=== PATIENT | female | born 2000 | race Caucasian/White ===

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

== ENCOUNTER → 2020-04-23 18:00 | Outpatient (CLI) | payer MEDICAID, SELFPAY ==
[2020-04-23 19:33] LABS: Basophils # 0.1 K/mm3 (0-0.2); Basophils % 0.6 % (0.1-2.0); Eosinophils # 0.9 K/mm3 (0.0-0.4); Eosinophils % 9.6 % (0.1-12.0); Hemoglobin 13.7 g/dL (12.2-16.2); Lymphocytes # 2.1 K/mm3 (0.7-4.5); Lymphocytes % 22.4 % (10-50); Mean Corpuscular HGB Conc 35.1 g/dL (31.8-35.4); Mean Corpuscular Volume 88.3 fl (81-99); Mean Platelet Volume 9.9 fl (7.4-10.4); Monocytes # 0.3 K/mm3 (0.1-1.0); Neutrophils # 5.9 K/mm3 (1.8-7.8); Neutrophils % 64.4 % (37.0-80.0); Platelet Count 298 K/mm3 (142-424); Red Blood Count 4.42 M/mm3 (4.20-5.40); Red Cell Distribution Width 12.9 % (11.5-17.5); White Blood Count 9.2 K/mm3 (4.5-13.0)
[2020-04-23 20:25] LABS: Alanine Aminotransferase 11 U/L (12-78); Albumin Level 4.2 g/dl (3.5-5.0); Albumin/Globulin Ratio 1.6 (1.1-1.8); Alkaline Phosphatase 82 U/L (38-126); Anion Gap 13.9 mEq/L (5-15); Aspartate Amino Transferase 18 U/L (14-36); Bilirubin,Total 0.3 mg/dl (0.2-1.3); Blood Urea Nitrogen 4 mg/dl (7-17); Calcium 9.4 mg/dl (8.4-10.2); Carbon Dioxide 25 mmol/L (22.0-30.0); Chloride 104 mmol/L (98-107); Chol/HDL Ratio 2.4 (1-3.5); Cholesterol 208 mg/dl (140-200); Estimated Glomerular Filt Rate 159 ml/min (>60); GFR (African American) 192 ML/MIN (>60); Globulin 2.7 g/dL (1.3-3.2); Glucose 93 mg/dl (74-100); HDL Cholesterol 87 mg/dl (40-60); Potassium 3.9 mmoL/L (3.5-5.1); Sodium 139 mmol/L (136-145); Total Protein,Serum 6.9 g/dl (6.3-8.2); Triglycerides 94 mg/dl (30-150); VLDL Cholesterol 19 mg/dL (0-40)
[2020-04-23 20:38] LABS: Direct LDL Cholesterol 115.65 mg/dL (100-129)
[2020-04-23 20:43] LABS: T4 (Thyroxine) 10.9 ug/dl (5.53-11.0)
[2020-04-23 20:52] LABS: 25-OH Vitamin D, Total 17.4 ng/mL (30-100)
[2020-04-23 20:57] LABS: Thyroid Stimulating Hormone 1.41 uIU/mL (0.465-4.68)
== END ==
PROVIDERS: Visit Provider Physician Assistant
DX: F41.9 Anxiety disorder, unspecified (principal); R53.83 Other fatigue; E55.9 Vitamin D deficiency, unspecified
CPT/HCPCS: 80053; 80061; 82306; 84436; 84443; 85025

== ENCOUNTER → 2020-07-01 14:04 | Outpatient (CLI) | payer MEDICAID, SELFPAY ==
[2020-07-01 14:56] LABS: Coronavirus 19 IgG Antibody Negative (Negative); Coronavirus 19 IgM Antibody Negative (Negative)
== END ==
PROVIDERS: PCP Physician Assistant; Visit Provider Internal Medicine Gastroenterology
DX: Z01.818 Encounter for other preprocedural examination (principal); Z12.11 Encounter for screening for malignant neoplasm of colon
CPT/HCPCS: 36415; 86328

== ENCOUNTER 2020-07-02 13:08 | Day surgery (SDC) | payer MEDICAID, SELFPAY ==
[2020-06-28 15:00] VITALS: BMI 23.6
[2020-07-02 13:41] VITALS: BP 101/59; PULSE 61; RESP 18; TEMP 36.4; O2SAT 100
[2020-07-02 13:42] LABS: Urine Pregnancy, HCG Qual. Negative (Negative)
[2020-07-02 14:19] VITALS: O2SAT 97
--- NOTE | 2020-07-02 14:42 | HMH.PROC ---
[facility] Procedure Note Procedure Note:: Colonoscopy Procedure Report: Colonoscopy with monopolar ablation/coagulation of internal hemorrhoids Endoscopist: Ankush Garcia II, MD Referring physician: Mellisa Jeong PA-C Date of Procedure: July 02, 2020 Equipment: Olympus 180 variable stiffness pediatric colonoscope Sedation: MAC sedation Indication: Ms. Johnson is a 20-year-old female with frequent bright red rectal bleeding. She does get some occasional rectal pain. She also has irregular bowel function with constipation and sometimes she will alternate with diarrhea. She has lost approximately 30 pounds unintentionally in the last 5 months. She reports obstipation/incomplete defecation with excessive wiping. She reports no family history of colitis, Crohn's disease or colon cancer. Her recent lab work from April 23, 2020 did show normal hemoglobin 13.7 and hematocrit 39.0. The patient also had normal liver chemistries with ALT 11 and AST 18 and alkaline phosphatase 82. Procedure: Prior to the procedure, a history and physical exam was performed, and patient's medications and allergies were reviewed. The risks, benefits and alternatives of the sedation and procedure were discussed with the patient. All questions were answered and informed consent was obtained. The patient was brought to the procedure room. Patient identification and proposed procedure were verified by the physician and the nurse. The patient was placed in a left lateral decubitus position and the scope was passed under direct vision. Throughout the procedure, the patient's blood pressure, pulse, and oxygen saturations were monitored continuously. The colonoscopy was accomplished without difficulty. The patient tolerated the procedure well. Findings: On digital rectal examination there was normal rectal tone. There were no external hemorrhoids. The colonoscope was introduced through the anal canal to the rectum and advanced to the cecum. The ileocecal valve and appendiceal orifice were identified. The scope was advanced a short distance into the ileum which appeared grossly normal. The scope was then withdrawn into the colon. The cecum, ascending, transverse, descending, sigmoid and rectum were grossly normal. There were no mucosal abnormalities identified. Upon retroflexion within the rectum there were grade 1-2 internal hemorrhoids.these columns of hemorrhoids were ablated/coagulated with monopolar ablation. There was excellent cautery effect. The preparation was excellent throughout with [place] Preparation Score of 9. The cecal time was 10 minutes. Impression: 1. Normal colonoscopy with intubation of the terminal ileum 2. Grade 1-2 internal hemorrhoids status post monopolar ablation/coagulation Plan: I would encourage dietary measures and a fiber bowel regimen on a long-term daily maintenance basis. I will discuss the findings with the patient and family.
[2020-07-02 14:48] VITALS: BP 109/68; PULSE 64; RESP 18; TEMP 36.4; O2SAT 99
[2020-07-02 14:58] VITALS: BP 122/61; PULSE 60; RESP 18; O2SAT 98
[2020-07-02 15:08] VITALS: BP 104/59; PULSE 52; RESP 18; O2SAT 98
[2020-07-02 15:18] VITALS: BP 110/61; PULSE 59; RESP 18; O2SAT 98
== END 2020-07-02 15:18 | disposition home or self-care (01) ==
LOC: OUTP 13:09
PROVIDERS: PCP Physician Assistant; Visit Provider Internal Medicine Gastroenterology
PROC: 0DJD8ZZ Inspection of Lower Intestinal Tract, Via Natural or Artificial Opening Endoscopic (ICD-10-PCS; CPT 45378; principal; 2020-07-02 14:30)
DX: K64.0 First degree hemorrhoids (principal); R63.4 Abnormal weight loss; Z68.23 Body mass index [BMI] 23.0-23.9, adult; K62.5 Hemorrhage of anus and rectum; K59.00 Constipation, unspecified; R19.7 Diarrhea, unspecified; F41.9 Anxiety disorder, unspecified; F32.9 Major depressive disorder, single episode, unspecified; Z79.899 Other long term (current) drug therapy; Z79.3 Long term (current) use of hormonal contraceptives
CPT/HCPCS: 45378; 46930; 81025

== ENCOUNTER 2020-08-24 11:14 | Emergency (ER) | payer MEDICAID, SELFPAY ==
[2020-08-24 11:35] VITALS: BP 113/76; PULSE 73; RESP 19; TEMP 36.6; O2SAT 98; BMI 25.4
[2020-08-24 11:50] LABS: Apearance,Urine Cloudy (Clear); Bilirubin,Urine 1+ (Negative); Blood, Urine 2+ (Negative); Color,Urine Dark Yellow (Yellow); Glucose,Urine (UA) Negative (Negative); Ketones,Urine Negative (Negative); PH,Urine 7.5 (5.0-8.5); Protein,Urine 1+ (Negative); Specific Gravity, Urine 1.015 (1.005-1.030); UTC Leukocyte Esterase,Urine 1+ (Negative); UTC Nitrate,Urine Negative (Negative); UTC Pregnancy Test, Urine Negative (Negative); Urobilinogen,Urine 4 EU/dl (0.2)
--- NOTE | 2020-08-24 12:06 | HMH.EDUTC ---
[facility] [place] Clinical Impression: UTI (urinary tract infection) Qualifiers: Urinary tract infection type: site unspecified Hematuria presence: with hematuria Qualified Code(s): N39.0 - Urinary tract infection, site not specified Disposition: Home, Self-Care Condition on Discharge: Good Instructions: Urinary Tract Infection Additional Instructions: Drink plenty of fluids. Take tylenol for pain or fever. Return if you begin to have difficulty breathing. Follow up with your regular doctor. GO TO THE ER FOR ANY WORSENING SYMPTOMS Prescriptions: Ondansetron [Zofran 4mg ODT] 4 mg PO Q8HP PRN #20 tab.rapdis PRN Reason: Nausea Transmission Status: Received by [facility] Cefdinir [Omnicef 300mg Capsule] 300 mg PO BID 7 Days #14 cap Transmission Status: Received by [facility] Referrals: Mellisa Jeong PA [Primary Care Provider] - Forms: Work/School Release Time of Disposition: 12:29 Medical Decision Making - Medical Records Medical records reviewed: No: I reviewed the patient's medical records. - Roe Inquiry Pt receiving controlled substance: No Vital Signs: 08/24/20 11:35 08/24/20 12:34 Temperature 97.8 F 97.8 F Temperature Source Oral Pulse Rate 73 Pulse Rate [Right Brachial] 73 Respiratory Rate 19 19 Blood Pressure 113/76 Blood Pressure [Right Arm] 113/76 Blood Pressure Mean [Right Arm] 88 Blood Pressure Source [Right Arm] Automatic Cuff Blood Pressure Position [Right Arm] Sitting 02 Sat by Pulse Oximetry 98 Oxygen Delivery Method Room Air - Lab Data Lab results reviewed: Yes: I reviewed the patient's lab results. Lab Results 08/24/20 11:31: Urine Color Dark yellow, Urine Appearance Cloudy, Urine pH 7.5, Ur Specific [place] 1.015, Urine Protein 1+, Urine Glucose (UA) Negative, Urine Ketones Negative, Urine Blood 2+, Urine Nitrate Negative, Urine Bilirubin 1+ A, Urine Urobilinogen 4, Ur Leukocyte Esterase 1+ A, Tst Clinic Negative Orders (Tests/Meds): ORDERS Category Date Time Status Urine Culture Stat Micro 08/24/20 11:30 Received [facility] [place] HPI - General Stated complaint: stomach pain Time Seen by Provider: 08/24/20 12:06 Mode of Arrival: Ambulatory Source of Information: Spouse Limitations: No Limitations Description of Symptoms (Recalled from Triage Doc. by RN): PATIENT C/O ABDOMINAL PAIN THAT RADIATES THROUGH HER CHEST AND UPPER BACK X 3 DAYS; ALSO C/O NAUSEA, DECREASED APPETITE AND DIFFICULTY SITTING UP FOR LONG PERIODS OF TIME HEENT Symptoms (Recalled from RN notes): No Resp Symptoms (Recalled from RN notes): No Skin Symptoms (Recalled from RN notes): No MS Symptoms (Recalled from RN notes): No Functional Status (Recalled from RN notes): WNL - History of Present Illness Provider Complaint: She c/o low back pain that began 3 days ago. She has also had abdominal cramping. She thinks that she may have a uti. - Related Data Home Medications Medication Instructions Recorded Confirmed Escitalopram Oxalate See Rx Instructions .ROUTE .COMPLEX 08/24/20 08/24/20 Previous Rx's Medication Instructions Recorded Cefdinir [Omnicef 300mg Capsule] 300 mg PO BID 7 Days #14 cap 08/24/20 Ondansetron [Zofran 4mg ODT] 4 mg PO Q8HP PRN #20 tab.rapdis 08/24/20 Allergies Allergy/AdvReac Type Severity Reaction Status Date / Time No Known Allergies Allergy Verified 06/07/20 10:58 - Worker's Comp Is this a Worker's Comp case?: No [facility] [place] History - Hepatitis A Screen Drug use history?: No High risk sexual behaviors?: No History of sexually transmitted infection?: No Currently employed?: No Childcare worker?: No Do you have indoor plumbing?: Yes Do you have electricity?: Yes Attestation statement:: This patient has been screened for Hepatitis A risk factors. I have reviewed the patient's past medical history: Yes Medical History: Denies:: Cancer, Diabetes Mellitus Type 1, Diabetes Mellitus
[2020-08-24 12:34] VITALS: BP 113/76; PULSE 73; RESP 19; TEMP 36.6; O2SAT 98
== END 2020-08-24 12:36 | disposition home or self-care (01) ==
PROVIDERS: Emergency Provider Nurse Practitioner Family; PCP Physician Assistant
DX: N39.0 Urinary tract infection, site not specified (principal); F41.8 Other specified anxiety disorders; F17.290 Nicotine dependence, other tobacco product, uncomplicated
CPT/HCPCS: 81003; 81025; 87086; 99201

== ENCOUNTER 2021-06-18 12:40 | Emergency (ER) | payer MEDICAID, SELFPAY ==
[2021-06-18 13:13] VITALS: BP 113/80; PULSE 68; RESP 16; TEMP 37.1; O2SAT 96; BMI 27.4
--- NOTE | 2021-06-18 13:25 | HMH.EDUTC ---
[facility] [place] Disposition Clinical Impression: Bronchitis, Laryngitis Disposition: Home, Self-Care Condition on Discharge: Good Instructions: Acute Bronchitis, DI for Acute Bronchitis Additional Instructions: Drink plenty of fluids. Take tylenol or ibuprofen for pain or fever. Take the medications as directed. Follow up with your regular doctor. GO TO THE ER FOR ANY WORSENING SYMPTOMS Quarantine until you know the results of your covid-19 test. If it is positive, the health department should call you and give you further instructions about your length of Quarantine and other things. Notify your school or workplace of your results and follow their instructions regarding return to work/school. Her work excuse needs to count for 06/17/2021 also. Prescriptions: Amoxicillin [Amoxicillin 500mg Tab] 500 mg PO TID 10 Days #30 tab Transmission Status: Received by [facility] methylPREDNISolone [Medrol] 4 mg PO DIRECTED 6 Days #21 packet Transmission Status: Received by [facility] Ondansetron [Zofran 4mg ODT] 4 mg PO DAILYP PRN #12 tab PRN Reason: Nausea Transmission Status: Received by [facility] Referrals: Mellisa Jeong PA [Primary Care Provider] - Forms: Work/School Release Time of Disposition: 13:42 Medical Decision Making - Medical Records Medical records reviewed: No: I reviewed the patient's medical records. - Roe Inquiry Pt receiving controlled substance: No Vital Signs: 06/18/21 13:13 06/18/21 13:47 Temperature 98.7 F 98.7 F Temperature Source Oral Oral Pulse Rate 68 Pulse Rate [Apical] 68 Respiratory Rate 16 16 Blood Pressure 113/80 Blood Pressure [Right Arm] 113/80 Blood Pressure Mean [Right Arm] 91 Blood Pressure Source Automatic Cuff Blood Pressure Source [Right Arm] Automatic Cuff Blood Pressure Position Sitting Blood Pressure Position [Right Arm] Sitting 02 Sat by Pulse Oximetry 96 Oxygen Delivery Method Room Air Room Air - Lab Data Lab results reviewed: Yes: I reviewed the patient's lab results. [facility] [place] HPI - General Stated complaint: cough, possible bronchitis Time Seen by Provider: 06/18/21 13:39 Mode of Arrival: Ambulatory Source of Information: Patient Limitations: No Limitations Description of Symptoms (Recalled from Triage Doc. by RN): cough, wheezing HEENT Symptoms (Recalled from RN notes): No Resp Symptoms (Recalled from RN notes): Yes Skin Symptoms (Recalled from RN notes): No MS Symptoms (Recalled from RN notes): No Functional Status (Recalled from RN notes): na - History of Present Illness Provider Complaint: She c/o 2 days of cough, congestion, runny nose and a hoarse voice. She denies fever or chills. She works in factory. She does not think she has been exposed to covid-19. - Related Data Home Medications Medication Instructions Recorded Confirmed Escitalopram Oxalate See Rx Instructions .ROUTE .COMPLEX 08/24/20 08/24/20 Previous Rx's Medication Instructions Recorded Cefdinir [Omnicef 300mg Capsule] 300 mg PO BID 7 Days #14 cap 08/24/20 Ondansetron [Zofran 4mg ODT] 4 mg PO Q8HP PRN #20 tab.rapdis 08/24/20 Amoxicillin [Amoxicillin 500mg Tab] 500 mg PO TID 10 Days #30 tab 06/18/21 Ondansetron [Zofran 4mg ODT] 4 mg PO DAILYP PRN #12 tab 06/18/21 methylPREDNISolone [Medrol] 4 mg PO DIRECTED 6 Days #21 06/18/21 packet Allergies Allergy/AdvReac Type Severity Reaction Status Date / Time No Known Allergies Allergy Verified 06/07/20 10:58 - Worker's Comp Is this a Worker's Comp case?: No [facility] History - Hepatitis A Screen Drug use history?: No High risk sexual behaviors?: No History of sexually transmitted infection?: No Currently employed?: No Childcare worker?: No Do you have indoor plumbing?: Yes Do you have electricity?: Yes Attestation statement:: This patient has been screened for Hepatitis A risk factors. I have reviewed the patient's past medica
[2021-06-18 13:47] VITALS: BP 113/80; PULSE 68; RESP 16; TEMP 37.1; O2SAT 96
== END 2021-06-18 13:49 | disposition home or self-care (01) ==
PROVIDERS: Emergency Provider Nurse Practitioner Family; PCP Physician Assistant
DX: J40 Bronchitis, not specified as acute or chronic (principal); J04.0 Acute laryngitis
CPT/HCPCS: 99202; C9803; G0463; U0003; U0005

== ENCOUNTER → 2021-10-04 15:56 | Outpatient (CLI) | payer MEDICAID, SELFPAY | PROVIDERS: Visit Provider Nurse Practitioner | DX: Z20.822 Contact with and (suspected) exposure to COVID-19 (principal) | CPT/HCPCS: C9803; U0003; U0005 ==

== ENCOUNTER → 2021-10-11 12:52 | Outpatient (CLI) | payer MEDICAID, SELFPAY ==
[2021-10-12 15:34] LABS: Covid-19 Nasal PCR Sendout Lex POSITIVE
== END ==
PROVIDERS: Visit Provider Nurse Practitioner
DX: U07.1 COVID-19 (principal)
CPT/HCPCS: C9803; U0004; U0005

== ENCOUNTER 2023-10-07 13:19 | Outpatient (CLI) | payer MEDICAID, SELFPAY ==
[2023-10-07 13:53] LABS: Basophils % 0.3 % (0.1-2.0); Eosinophils # 0.3 K/mm3 (0.0-0.4); Eosinophils % 2.9 % (0.1-12.0); Hematocrit 42.3 % (37.0-47.0); Hemoglobin 13.9 g/dL (12.2-16.2); Lymphocytes # 2.9 K/mm3 (0.7-4.5); Lymphocytes % 30.6 % (10-50); Mean Corpuscular HGB Conc 32.9 g/dL (31.8-35.4); Mean Corpuscular Hemoglobin 29.6 pg (27.0-31.2); Mean Corpuscular Volume 89.9 fl (81-99); Mean Platelet Volume 8.4 fl (7.4-10.4); Monocytes # 0.5 K/mm3 (0.1-1.0); Monocytes % 5.1 % (1.7-9.3); Neutrophils # 5.8 K/mm3 (1.8-7.8); Neutrophils % 61.1 % (37.0-80.0); Platelet Count 388 K/mm3 (142-424); Red Cell Distribution Width 13.2 % (11.5-17.5); White Blood Count 9.5 K/mm3 (4.8-10.8)
[2023-10-07 14:18] LABS: Chloride 104 mmol/L (98-107)
[2023-10-07 14:19] LABS: Potassium 4.1 mmoL/L (3.5-5.1); Sodium 137 mmol/L (136-145)
[2023-10-07 14:21] LABS: Alanine Aminotransferase 16 U/L (12-78); Albumin Level 4.5 g/dl (3.5-5.0); Albumin/Globulin Ratio 1.7 (1.1-1.8); Alkaline Phosphatase 121 U/L (38-126); Anion Gap 13.1 mEq/L (5-15); Aspartate Amino Transferase 27 U/L (14-36); Bilirubin,Total 0.4 mg/dl (0.2-1.3); Blood Urea Nitrogen 8 mg/dl (7-17); Carbon Dioxide 24 mmol/L (22.0-30.0); Estimated Glomerular Filt Rate 124 ml/min (>60); GFR (African American) 150 ML/MIN (>60); Globulin 2.7 g/dL (1.3-3.2); Total Protein,Serum 7.2 g/dl (6.3-8.2)
[2023-10-07 14:22] LABS: Calcium 9.1 mg/dl (8.4-10.2); Chol/HDL Ratio 3.6 (1-3.5); Cholesterol 253 mg/dl (140-200); Glucose 72 mg/dl (74-100); HDL Cholesterol 70 mg/dl (40-60); Triglycerides 104 mg/dl (30-150); VLDL Cholesterol 21 mg/dL (0-40)
[2023-10-07 14:23] LABS: 25-OH Vitamin D, Total 16.2 ng/mL (30-100)
[2023-10-07 14:28] LABS: C-Reactive Protein 1.3 mg/L (0-4)
[2023-10-07 14:33] LABS: Direct LDL Cholesterol 139.19 mg/dL (100-129); Erythrocyte Sedimentation Rate 9 mm/hr (0-20)
[2023-10-07 14:54] LABS: Thyroid Stimulating Hormone 5.99 uIU/mL (0.465-4.68)
== END 2023-10-07 23:59 ==
LOC: LAB.DROPOF 13:19
PROVIDERS: PCP Physician Assistant; Visit Provider Physician Assistant
DX: M25.50 Pain in unspecified joint (principal); R23.8 Other skin changes; E55.9 Vitamin D deficiency, unspecified; E66.9 Obesity, unspecified; Z68.33 Body mass index [BMI] 33.0-33.9, adult
CPT/HCPCS: 80053; 80061; 82306; 84443; 85025; 85651; 86140

== ENCOUNTER 2023-11-04 11:35 | Outpatient (CLI) | payer MEDICAID, SELFPAY ==
[2023-11-04 12:37] LABS: Erythrocyte Sedimentation Rate 8 mm/hr (0-20)
[2023-11-04 16:34] LABS: C-Reactive Protein 0.6 mg/L (0-4)
[2023-11-05 11:36] LABS: Anti-Centromere B Antibodies <0.2 AI (0.0-0.9); Anti-DNA (DS) Ab Qn <1 IU/mL (0-9); Anti-Jo-1 <0.2 AI (0.0-0.9); Anti-Smith Antibody <0.2 AI (0.0-0.9); Antichromatin Antibodies <0.2 AI (0.0-0.9); Antiscleroderma-70 Antibodies <0.2 AI (0.0-0.9); RA Latex Turbid. <10.0 IU/mL (<14.0); RNP Antibodies <0.2 AI (0.0-0.9); Sjogren's Anti-SS-A <0.2 AI (0.0-0.9); Sjogren's Anti-SS-B <0.2 AI (0.0-0.9)
[2023-11-05 13:42] LABS: Anti-Cyclic Citrullinated Pept 6 units (0-19)
[2023-11-09 10:10] LABS: Lupus Reflex Interpretation Comment: (.); PTT-LA 45.2 sec (0.0-43.5); PTT-LA Mix 40.2 sec (0.0-40.5); dRVVT 34.8 sec (0.0-47.0)
== END 2023-11-04 23:59 ==
LOC: LAB 11:37
PROVIDERS: PCP Physician Assistant; Visit Provider Physician Assistant
DX: R21 Rash and other nonspecific skin eruption (principal); M25.50 Pain in unspecified joint
CPT/HCPCS: 36415; 85613; 85651; 86140; 86200; 86225; 86235; 86431

== ENCOUNTER 2024-12-16 10:21 | Outpatient (CLI) | payer MEDICAID, SELFPAY ==
[2024-12-16 10:36] LABS: Lyme Ab IgM CIA ND; Lyme IgG CIA ND
[2024-12-16 10:57] LABS: Basophils # 0.1 K/mm3 (0-0.2); Basophils % 0.5 % (0.1-2.0); Eosinophils # 0.2 K/mm3 (0.0-0.4); Hematocrit 40.2 % (37.0-47.0); Hemoglobin 13.6 g/dL (12.2-16.2); Lymphocytes % 19.4 % (10-50); Mean Corpuscular HGB Conc 33.8 g/dL (31.8-35.4); Mean Corpuscular Hemoglobin 30.6 pg (27.0-31.2); Mean Corpuscular Volume 90.3 fl (81-99); Mean Platelet Volume 10.4 fl (7.4-10.4); Monocytes # 0.5 K/mm3 (0.1-1.0); Monocytes % 4.9 % (1.7-9.3); Neutrophils # 7.7 K/mm3 (1.8-7.8); Neutrophils % 72.9 % (37.0-80.0); Platelet Count 277 K/mm3 (142-424); Red Blood Count 4.45 M/mm3 (4.20-5.40); Red Cell Distribution Width 12.1 % (11.5-17.5); White Blood Count 10.5 K/mm3 (4.8-10.8)
[2024-12-16 11:16] LABS: Alanine Aminotransferase 17 U/L (12-78); Albumin Level 4.4 g/dl (3.5-5.0); Albumin/Globulin Ratio 1.6 (1.1-1.8); Alkaline Phosphatase 63 U/L (38-126); Anion Gap 9.9 mEq/L (5-15); Aspartate Amino Transferase 26 U/L (14-36); Bilirubin,Total 0.4 mg/dl (0.2-1.3); Blood Urea Nitrogen 6 mg/dl (7-17); Calcium 9.2 mg/dl (8.4-10.2); Carbon Dioxide 27 mmol/L (22.0-30.0); Chloride 107 mmol/L (98-107); Estimated Glomerular Filt Rate 103 ml/min (>60); GFR (African American) 124 ML/MIN (>60); Globulin 2.7 g/dL (1.3-3.2); Glucose 89 mg/dl (74-100); Potassium 3.9 mmoL/L (3.5-5.1); Sodium 140 mmol/L (136-145); Total Protein,Serum 7.1 g/dl (6.3-8.2)
[2024-12-16 11:49] LABS: Thyroid Stimulating Hormone 1.55 uIU/mL (0.465-4.68)
[2024-12-16 12:21] LABS: 25-OH Vitamin D, Total 30.4 ng/mL (30-100); Free T4 (Free Thyroxine) 0.84 ng/dl (0.78-2.19)
[2024-12-17 11:16] LABS: Lyme Ab CIA Negative (Negative)
== END 2024-12-16 23:59 | disposition home or self-care (01) ==
LOC: LAB 10:22
PROVIDERS: PCP Family Medicine; Visit Provider Family Medicine
DX: R63.4 Abnormal weight loss (principal); R94.6 Abnormal results of thyroid function studies; E55.9 Vitamin D deficiency, unspecified; S30.860A Insect bite (nonvenomous) of lower back and pelvis, initial encounter; W57.XXXA Bitten or stung by nonvenomous insect and other nonvenomous arthropods, initial encounter
CPT/HCPCS: 36415; 80053; 82306; 84439; 84443; 85025; 86618

== ENCOUNTER 2025-01-29 18:33 | Emergency (ER) | payer MEDICAID, SELFPAY ==
[2025-01-29 18:39] VITALS: BP 123/73; PULSE 78; RESP 16; TEMP 36.6; O2SAT 98; BMI 22.4
--- NOTE | 2025-01-29 18:40 | HMH.EDGENADL ---
Discharge Plan Disposition Patient Disposition: Home, Self-Care Condition: Good Prescriptions Prescriptions: New hydroxyzine HCl 25 mg tablet 25 mg PO Q8H PRN (Reason: itching) Qty: 20 0RF prednisone 20 mg tablet 20 mg PO BID 7 Days Qty: 14 0RF clobetasol 0.05 % cream 1 applic topical BID Qty: 15 0RF No Action lamotrigine [Lamictal] 25 mg tablet 25 mg PO DAILY 28 Days Qty: 42 0RF Rx Instructions: Take 25mg for 14 days then increase to 50mg for 14 days. cholecalciferol (vitamin D3) 1,250 mcg (50,000 unit) capsule 1,250 mcg PO WEEKLY Qty: 5 0RF Referrals Follow up/Referrals: Bryson Barber MD [Primary Care Provider] - See instructions Activity Restrictions/Add. Instructions Additional Instructions/Restrictions: Use medications as directed. Please call PCP for dermatology referral as discussed. If rash does not improve please return to PCP Clinical Impressions Clinical Impression: Rash and nonspecific skin eruption, Eczema Instructions Patient Instructions: DI for Rash Print Language Print Language: Israeli Discharge ED Provider: Sandeep Morse General Adult HPI <Geno Zhou (ED), [employer] - Last Filed: 01/29/25 19:34> General Chief complaint: Skin/Abscess/Foreign Body Stated complaint: rash from new medicine Time Seen by Provider: 01/29/25 18:35 History of Present Illness HPI narrative: 24-year-old female presents to the ED today for complaint of rash that covers her arms and legs. Patient states that she took omeprazole on and was told to stop after the rash erupted. Patient did stop but it seems to be getting worse. Patient also has eczema that is unrelated around her umbilicus. She says this was there before she started the Lamictal and realizes that this is not part of the Lamictal problem. She does need a referral to dermatology. Related Data Previous Rx's ?Medication ?Instructions ?Recorded cholecalciferol (vitamin D3) 1,250 1,250 mcg PO WEEKLY #5 caps 10/20/23 mcg (50,000 unit) capsule lamotrigine 25 mg tablet (Lamictal) 25 mg PO DAILY 28 days #42 tabs 01/18/25 clobetasol 0.05 % topical cream 1 applic topical BID to abdomen 01/29/25 #15 grams hydroxyzine HCl 25 mg tablet 25 mg PO Q8H PRN itching #20 tabs 01/29/25 prednisone 20 mg tablet 20 mg PO BID 7 days #14 tabs 01/29/25 Allergies Allergy/AdvReac Type Severity Reaction Status Date / Time No Known Allergies Allergy Verified 01/18/25 09:20 PFSH <Geno Zhou (ED), [employer] - Last Filed: 01/29/25 19:34> PFSH Disclaimer: The information contained in this section may have been updated after the patient was seen, as this information can be updated by other users. Medical History Screening for cervical cancer Weight loss, non-intentional Abnormal thyroid function test Tick bite of back Depression Anxiety Social History Smoking Status: Never smoker alcohol intake: never substance use type: marijuana current occupational status: other Travel in the last 8 weeks?: None household members: family housing: house current occupation: [employer] L[employer] caffeine: No Have you lived/traveled outside US in past 30 days?: No Contact w/someone who lives/traveled outside US past 30 days?: No Exposure to someone with infectious disease in past 14 days?: No Do you have a fever (greater than 100.4 F or 38 C)?: No Have you tested positive for COVID-19?: No Exposed to someone with COVID-19 in past 14 days?: No Do you have a sore throat?: No Do you have a cough?: No Do you have any weakness?: No Do you have any diarrhea?: No Are you experiencing any unusual bleeding?: No Do you have any muscle aches/pain?: No Do you have any abdominal pain?: No Are you experiencing loss of taste or smell?: No Other Medical History Have you received the Flu Vaccine for this season: No Have you received the Pneumonia Vaccine: No <Geno Zhou (ED), [employer] - Last Filed: 01/29/25 19:34> ROS Obtained: Yes Systems reviewed as appropriate & no additional complaints except as documented Constitutional Constitutional: Reports as per HPI Physical Exam <Geno Zhou (ED), [employer] - Last Filed: 01/29/25 19:34> General General appearance: alert and in distress Head Head exam: normocephalic Eye Eye exam: Present PERRL and EOMI ENT ENT exam: Present normal oropharynx and mucous membranes moist Neck Neck exam: Present full ROM and trachea midline Respiratory Respiratory exam: Present normal lung sounds bilaterally Cardiovascular Cardiovascular exam: Present regular rate, normal rhythm, normal heart sounds, +S1 and +S2 Extremities Exam Extremities exam: Present normal inspection, full ROM and normal capillary refill Neurological Exam Neurological exam: Present alert and oriented X3 Skin Skin exam: Present warm, dry and rash (Erythematous, raised rash that is scattered and diffuse over her arms and legs; secondary rash is eczema like this scaly scabbed and dry around the umbilicus) Medical Decision Making <Geno Zhou (JANINE), [employer] - Last Filed: 01/29/25 19:34> Medical Records Screening: Per USPSTF and CDC recommendations, given the prevalence of disease in our region, it is our hospital?s policy to screen for HIV and viral Hepatitis for all patients aged 18 and over and those with ongoing risk factors. Roe Inquiry Pt receiving controlled substance: No Roe was queried for this patient: No Vital Signs: 01/29/25 18:39 01/29/25 19:44 01/29/25 19:44 Temperature 97.9 F 98.1 F 97.9 F Temperature Source Oral Oral Pulse Rate 87 78 Pulse Rate [Right Radial] 78 Respiratory Rate 16 18 16 Blood Pressure 120/78 123/73 Blood Pressure [Right Arm] 123/73 Blood Pressure Mean [Right Arm] 89 Blood Pressure Source Automatic Cuff Blood Pressure Source [Right Arm] Automatic Cuff Blood Pressure Position Sitting Blood Pressure Position [Right Arm] Supine 02 Sat by Pulse Oximetry 98 Oxygen Delivery Method Room Air Room Air Room Air 01/29/25 19:44 Temperature 98.3 F Temperature Source Oral Pulse Rate Pulse Rate [Right Radial] 88 Respiratory Rate 18 Blood Pressure Blood Pressure [Right Arm] 120/78 Blood Pressure Mean [Right Arm] 92 Blood Pressure Source Blood Pressure Source [Right Arm] Automatic Cuff Blood Pressure Position Blood Pressure Position [Right Arm] Sitting 02 Sat by Pulse Oximetry 98 Oxygen Delivery Method Room Air Orders (Tests/Meds): ED MEDICATIONS Discontinued Medications Generic Name Dose Route Start Last Admin Trade Name Freq PRN Reason Stop Dose Admin Diphenhydramine HCl 25 mg 01/29/25 18:40 01/29/25 19:00 Diphenhydramine 25mg Capsule PO 01/29/25 18:41 25 mg ONCE ONE Administration Prednisone 40 mg 01/29/25 18:40 01/29/25 19:01 Prednisone 20mg Tab PO 01/29/25 18:41 40 mg ONCE ONE Administration Medical Decision Narrative: Insert review patient is a 24-year-old female presenting to the emergency department for evaluation of rash that is diffuse, erythematous, no drainage on legs and arms. Patient did take Lamictal and has stopped since. Patient also has eczema-like rash that surrounds her bellybutton. I have told her that she needs to see her PCP for a dermatology referral specifically. Patient is hemodynamically stable and nontoxic-appearing upon arrival, afebrile. Differential diagnosis includes drug eruption, eczema, among others. Initial inventions include prednisone and Benadryl for rash. Patient and mom educated on the rash that is an appearance like eczema. This is likely unrelated to her Lamictal. <Sandeep Morse MD - Last Filed: 01/29/25 23:23> Vital Signs: 01/29/25 18:39 01/29/25 19:44 01/29/25 19:44 Temperature 97.9 F 98.1 F 97.9 F Temperature Source Oral Oral Pulse Rate 87 78 Pulse Rate [Right Radial] 78 Respiratory Rate 16 18 16 Blood Pressure 120/78 123/73 Blood Pressure [Right Arm] 123/73 Blood Pressure Mean [Right Arm] 89 Blood Pressure Source Automatic Cuff Blood Pressure Source [Right Arm] Automatic Cuff Blood Pressure Position Sitting Blood Pressure Position [Right Arm] Supine 02 Sat by Pulse Oximetry 98 Oxygen Delivery Method Room Air Room Air Room Air 01/29/25 19:44 Temperature 98.3 F Temperature Source Oral Pulse Rate Pulse Rate [Right Radial] 88 Respiratory Rate 18 Blood Pressure Blood Pressure [Right Arm] 120/78 Blood Pressure Mean [Right Arm] 92 Blood Pressure Source Blood Pressure Source [Right Arm] Automatic Cuff Blood Pressure Position Blood Pressure Position [Right Arm] Sitting 02 Sat by Pulse Oximetry 98 Oxygen Delivery Method Room Air Orders (Tests/Meds): ED MEDICATIONS Discontinued Medications Generic Name Dose Route Start Last Admin Trade Name Freq PRN Reason Stop Dose Admin Diphenhydramine HCl 25 mg 01/29/25 18:40 01/29/25 19:00 Diphenhydramine 25mg Capsule PO 01/29/25 18:41 25 mg ONCE ONE Administration Prednisone 40 mg 01/29/25 18:40 01/29/25 19:01 Prednisone 20mg Tab PO 01/29/25 18:41 40 mg ONCE ONE Administration Medical Decision Narrative: Insert review patient is a 24-year-old female presenting to the emergency department for evaluation of rash that is diffuse, erythematous, no drainage on legs and arms. Patient did take Lamictal and has stopped since. Patient also has eczema-like rash that surrounds her bellybutton. I have told her that she needs to see her PCP for a dermatology referral specifically. Patient is hemodynamically stable and nontoxic-appearing upon arrival, afebrile. Differential diagnosis includes drug eruption, eczema, among others. Initial inventions include prednisone and Benadryl for rash. Patient and mom educated on the rash that is an appearance like eczema. This is likely unrelated to her Lamictal. I was consulted by the JAIRO, and we discussed the complexity of the problems being addressed. I approved the treatment and management plan for this patient's care in the Emergency Department, thus performing a substantive portion of the medical decision making. Sandeep Morse MD Critical Care <Geno Zhou (ED), [employer] - Last Filed: 01/29/25 19:34> Critical Care Time Critical Care Time: No
[2025-01-29] MEDS: diphenhydrAMINE 25MG CAPSULE 25 MG PO (19:00)
[2025-01-29] MEDS: predniSONE 20MG TAB 40 MG PO (19:01)
[2025-01-29 19:44] VITALS: BP 120/78; BP 123/73; PULSE 78; PULSE 87; PULSE 88; RESP 16; RESP 18; TEMP 36.6; TEMP 36.7; TEMP 36.8; O2SAT 97; O2SAT 98; BMI 22.3
== END 2025-01-29 19:44 | disposition home or self-care (01) ==
PROVIDERS: Emergency Provider Emergency Medicine; PCP Family Medicine
DX: L30.0 Nummular dermatitis (principal); R21 Rash and other nonspecific skin eruption
CPT/HCPCS: 99283

== ENCOUNTER 2025-03-05 14:44 | Emergency (ER) | payer MEDICAID, SELFPAY ==
[2025-03-05 15:35] VITALS: BP 104/78; PULSE 74; RESP 15; TEMP 37.1; O2SAT 100; BMI 23.2
[2025-03-05 15:39] VITALS: BP 104/78; PULSE 74; RESP 15; TEMP 37.1; O2SAT 100
[2025-03-05 15:40] VITALS: O2SAT 100
[2025-03-05 16:00] VITALS: BP 102/62; PULSE 64; O2SAT 99
--- NOTE | 2025-03-05 16:05 | ED_ITS ---
Discharge Plan Disposition Patient Disposition: Home, Self-Care Condition: Good Prescriptions Prescriptions: New cephalexin 500 mg capsule 500 mg PO Q8H 7 Days Qty: 21 0RF levofloxacin 750 mg tablet 750 mg PO DAILY 5 Days Qty: 5 0RF No Action cholecalciferol (vitamin D3) 1,250 mcg (50,000 unit) capsule 1,250 mcg PO WEEKLY Qty: 5 0RF aripiprazole [Abilify] 5 mg tablet 5 mg PO DAILY Qty: 30 2RF hydroxyzine HCl 25 mg tablet 25 mg PO Q8H PRN (Reason: itching) Qty: 20 0RF prednisone 20 mg tablet 20 mg PO BID 7 Days Qty: 14 0RF clobetasol 0.05 % cream 1 applic topical BID Qty: 15 0RF Referrals Follow up/Referrals: Bryson Barber MD [Primary Care Provider, Family Practice] - See instructions Activity Restrictions/Add. Instructions Additional Instructions/Restrictions: You were evaluated in the emergency department today. 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 Take Ty lenol and ibuprofen as you need to for pain. Keep your wounds clean and dry. Monitor for any signs of infection such as redness, warmth, or pus draining from the wounds. Follow-up with your primary care provider for wound recheck. Return to the emergency department for new or worsening symptoms. Clinical Impressions Clinical Impression: Fish hook injury of left thumb Stand Alone Forms Stand Alone Forms: Work/School Release Instructions Patient Instructions: DI for Puncture Wound Print Language Print Language: Persian Discharge ED Provider: Sonal Shipman General Adult HPI General Chief complaint: Skin/Abscess/Foreign Body Stated complaint: AO 03/05/25 Fishing hook in L hand Time Seen by Provider: 03/05/25 15:29 Mode of Arrival: Ambulatory Source of Information: Patient Description of Symptoms (Recalled from ER Triage Doc. by RN): pt presents to the ED with a fish hook in her left thumb. pt states she was tring to cut the line of the hook when it slipped and went into her thumb. pt is unsure of last tentanus shot. History of Present Illness HPI narrative: This patient is a 24-year-old female who denies any past medical history presenting to the emergency department for evaluation concern for a fishhook stuck in her left thumb. She notes she is up-to-date on vaccinations including tetanus, with last 1 being 2 years ago. She denies any other concerns or complaints. Related Data Previous Rx's ?Medication ?Instructions ?Recorded cholecalciferol (vitamin D3) 1,250 1,250 mcg PO WEEKLY #5 caps 10/20/23 mcg (50,000 unit) capsule clobetasol 0.05 % topical cream 1 applic topical BID t o abdomen 01/29/25 #15 grams hydroxyzine HCl 25 mg tablet 25 mg PO Q8H PRN itching #20 tabs 01/29/25 prednisone 20 mg tablet 20 mg PO BID 7 days #14 tabs 01/29/25 aripiprazole 5 mg tablet (Abilify) 5 mg PO DAILY #30 t abs 01/30/25 cephalexin 500 mg capsule 500 mg PO Q8H 7 days #21 cap s 03/05/25 levofloxacin 750 mg tablet 750 mg PO DAILY 5 days #5 t abs 03/05/25 Allergies Allergy/AdvReac Type Severity Reaction Status Date / Time lamotrigine (From Lamictal) AdvReac Intermediate rash Verified 02/08/25 08:25 [facility] Disclaimer: The information contained in this section may have been updated after the patient was seen, as this information can be updated by other users. Medical History Screening for cervical cancer Weight loss, non-intentional Abnormal thyroid function test Tick bite of back Depression Anxiety Social History Smoking Status: Current every day smoker tobacco type: e-cigarettes alcohol intake: never substance use type: marijuana current occupational status: other Travel in the last 8 weeks?: None household members: family housing: house current occupation: [employer] caffeine: No Have you lived/traveled outside US in past 30 days?: No Contact w/someone who lives/traveled outside US past 30 days?: No Exposure to someone with infectious disease in past 14 days?: No Do you have a fever (greater than 100.4 F or 38 C)?: No Have you tested positive for COVID-19?: No Exposed to someone with COVID-19 in past 14 days?: No Do you have a sore throat?: No Do you have a cough?: No Do you have any weakness?: No Do you have any diarrhea?: No Are you experiencing any unusual bleeding?: No Do you have any muscle aches/pain?: No Do you have any abdominal pain?: No Are you experiencing loss of taste or smell?: No Other Medical History Have you received the Flu Vaccine for this season: No Have you received the Pneumonia Vaccine: No ROS Obtained: Yes All systems reviewed & no additional complaints except as documented Physical Exam General General appearance: alert and in no apparent distress Head Head exam: atraumatic and normocephalic Eye Eye exam: Present normal appearance, PERRL and EOMI ENT ENT exam: Present normal exam, normal oropharynx, mucous membranes moist and normal external ear exam Neck Neck exam: Present normal inspection, full ROM and trachea midline; Absent tenderness Chest Chest inspection: Present normal inspection and symmetric chest wall rise; Absent tenderness Respiratory Respiratory exam: Present normal lung sounds bilaterally; Absent respiratory distress, wheezes, stridor or accessory muscle use Cardiovascular Cardiovascular exam: Present regular rate and normal rhythm Abdominal Exam Abdominal exam: Present soft; Absent distention, tenderness or guarding Extremities Exam Extremities exam: Present full ROM, normal capillary refill and other ([place] stuck in pad of left thumb, neurovascular intact distally); Absent tenderness or edema Back Exam Back exam: Present normal inspection and full ROM; Absent tenderness Neurological Exam Neurological exam: Present alert, oriented X3, CN II-XII intact and normal gait; Absent motor sensory deficit Psychiatric Psychiatric exam: Present normal affect and normal mood Skin Skin exam: Present warm and dry Medical Decision Making Medical Records Medical records reviewed: Yes I reviewed the patient's medical records. Screening: Per USPSTF and CDC recommendations, given the prevalence of disease in our region, it is our hospital?s policy to screen for HIV and viral Hepatitis for all patients aged 18 and over and those with ongoing risk factors. Roe Inquiry Pt receiving controlled substance: No Vital Signs: 03/05/25 15:35 03/05/25 15:39 03/05/25 15:40 Temperature 98.7 F 98.7 F Temperature Source Oral Oral Pulse Rate 74 Pulse Rate [Right] 74 Respiratory Rate 15 15 Blood Pressure 104/78 L Blood Pressure [Right Arm] 104/78 L Blood Pressure Mean [Right Arm] 86 Blood Pressure Source Automatic Cuff Blood Pressure Source [Right Arm] Automatic Cuff Blood Pressure Position Supine Blood Pressure Position [Right Arm] Supine 02 Sat by Pulse Oximetry 100 100 100 Oxygen Delivery Method Room Air Room Air Room Air 03/05/25 16:00 03/05/25 16:47 03/05/25 16:49 Temperature 98.4 F Temperature Source Pulse Rate 64 70 68 Pulse Rate [Right] Respiratory Rate 18 Blood Pressure 102/62 L 103/71 L 103/71 L Blood Pressure [Right Arm] Blood Pressure Mean [Right Arm] Blood Pressure Source Blood Pressure Source [Right Arm] Blood Pressure Position Blood Pressure Position [Right Arm] 02 Sat by Pulse Oximetry 99 100 Oxygen Delivery Method Lab Data Lab results reviewed: Yes I reviewed the patient's lab results. Orders (Tests/Meds): ED MEDICATIONS Discontinued Medications Generic Name Dose Route Start Last Admin Trade Name Freq PRN Reason Stop Dose Admin Cephalexin HCl 500 mg 03/05/25 16:42 03/05/25 16:51 Cephalexin 500mg Capsule PO 03/05/25 16:43 500 mg ONCE ONE Administration Levofloxacin 750 mg 03/05/25 16:42 03/05/25 16:51 Levofloxacin 750 Mg Tablet PO 03/05/25 16:43 750 mg ONCE ONE Administration Lidocaine HCl 10 ml 03/05/25 15:59 03/05/25 16:06 Lidocaine 1% 10ml Mdv IJ 03/05/25 16:00 10 ml ONCE ONE Administration Medical Decision Narrative: In summary, this patient is a 24-year-old female presenting to the Emergency Department for evaluation of fishhook stuck in her left thumb. Differential diagnoses considered include but are not limited to pain foreign body, laceration, abrasion, neurovascular injury. Ruling out the most morbid conditions drove assessment. On exam, the patient is well-appearing. She has a fishhook stuck in her left thumb and the pad of the thumb but is neurovascularly intact. She is up-to-date on vaccinations including tetanus. After informed consent was obtained, patient elected to receive a digital block for removal of foreign body. After informed consent was obtained after thorough risk versus benefit explanation, patient consented to digital block of the left thumb for removal of the fishhook. Digital block was performed, which she tolerated well. The fishhook was advanced through her thumb, the chirag was removed, and then it was pulled out successfully without any complication. Patient's thumb was then irri gated with Betadine. I feel she is appropriate for discharge home. I elected to prescribe Keflex and Levaquin, as the hook was a contaminated/dirty hook. She is already up-to-date on tetanus so this was not given. She was discharged with prescriptions for antibiotics and strict return precautions. Procedures Risk/Benefits of Procedure(s) Were Explained: Yes Foreign Body Removal Time Out Performed: Yes Site: left and hand (thumb) Description of foreign body: fish hook Sedation/Analgesia: none Technique: removal with forceps Confirmed by:: direct visualization Complications: none Post-procedure exam: awake, alert, normal BP, normal HR and normal O2 sat Neurovascular: normal distal pulse, normal capillary fill, distal light touch sensation intact, distal motor function normal, no signs of compartment syndrome and no change from pre-procedure Nerve Block Nerve Block 1: Time out performed: Yes Local Anesthetic: lidocaine 1% Amount of anesthesia used (mL): 4 Side: Left Nerve Blocks: digital Procedure Successful: Yes Patient Tolerated Procedure: well and no complications Complications: none Critical Care Critical Care Time Critical Care Time: No
[2025-03-05] MEDS: LIDOCAINE 1% 10ML MDV 10 ML IJ (16:06)
[2025-03-05 16:47] VITALS: BP 103/71; PULSE 70; O2SAT 100
[2025-03-05 16:49] VITALS: BP 103/71; PULSE 68; RESP 18; TEMP 36.9; O2SAT 99
[2025-03-05] MEDS: cephALEXin 500MG CAPSULE 500 MG PO (16:51)
[2025-03-05] MEDS: levoFLOXacin 750 MG TABLET PO (16:51)
== END 2025-03-05 16:55 | disposition home or self-care (01) ==
PROVIDERS: Emergency Provider Emergency Medicine; PCP Family Medicine
DX: S60.352A Superficial foreign body of left thumb, initial encounter (principal); W45.8XXA Other foreign body or object entering through skin, initial encounter
CPT/HCPCS: 10120; 99283